=== PATIENT | female | born 2000 | race Caucasian/White ===

== ENCOUNTER 2022-06-06 22:48 | Emergency (ER) | payer SELFPAY ==
[~2022-06-06] VITALS: Ht 157.5 cm; Wt 68.2 kg
[2022-06-06 22:53] VITALS: BP 114/61; TEMP 97.9
[2022-06-06 23:30] LABS: COLLECTION METHOD CLEAN CATCH
[2022-06-06 23:38] LABS: MUCOUS Present (NOT PRESENT); URINE APPEARANCE Clear (CLEAR/HAZY); URINE BACTERIA Rare /hpf (NONE SEEN); URINE BLOOD Negative (NEGATIVE); URINE COLOR Yellow (YELLOW); URINE GLUCOSE TRACE (NEGATIVE); URINE KETONE Negative (NEGATIVE); URINE NITRATE Negative (NEGATIVE); URINE PROTEIN(semi-quant) Negative (NEGATIVE); URINE RBC 0-2 /hpf (0-2); URINE UROBILINOGEN 0.2 E.U/dL (0.2-1.0)
[2022-06-06 23:54] VITALS: PULSE 98
== END 2022-06-07 | disposition home or self-care (01) ==
LOC: COL.ER 22:48
PROVIDERS: Nurse Practitioner
DX: O26.892 Other specified pregnancy related conditions, second trimester (principal); R10.30 Lower abdominal pain, unspecified; Z28.310 Unvaccinated for COVID-19; Z3A.17 17 weeks gestation of pregnancy

== ENCOUNTER → 2022-08-15 | Outpatient (CLI) | payer SELFPAY ==
[~2022-08-15] VITALS: Ht 157.5 cm; Wt 66.8 kg
--- NOTE | 2022-08-16 00:30 | NUR ---
PT ARRIVED FROM HOME TO L&D WITH C/O ABD CRAMPING, SPOTTING AND WHITE DISCHARGE THAT STARTED LAST NIGHT AROUND 2300. THIS RN LOOKED AND SAW ONE SMALL SPOT OF PINK AND WHITE DISCHARGE IN PTS UNDERWEAR. A PAD WAS PLACED TO CATCH ANY DISCHARGE OR BLOOD UPON ARRIVAL, PAD IS DRY AT 0111. PT STATES THAT WHEN LAYING DOWN SHE HAS NO ABD PN BUT WALKING AND SITTING WITH A PN OF 10/10. PT STATES THAT TYLENOL HAS NOT HELPED THE DISCOMFORT, ONLY LAYING DOWN. MONITORS PLACED UPON ADMISSION, NO CTX NOTED AND PT STATES THE PAIN WHEN WALKING, STANDING OR SITTING IS CONSTANT. PT APPEARS COMFORTABLE IN BED. MATERNAL MOTHER AT BEDSIDE. WATER AT BEDSIDE AND CALL LIGHT WITHIN REACH.
[2022-08-16 01:00] VITALS: TEMP 98.3
[2022-08-16 02:00] VITALS: BP 121/71; PULSE 89; TEMP 98.3
[2022-08-16 02:23] LABS: COLLECTION METHOD CLEAN CATCH
[2022-08-16 02:26] LABS: BASO % 0.2 % (0.0-2.0); EOS # 0.2 K/mm3 (0.0-0.7); EOS % 1.3 % (0.0-4.0); GRAN # 11.2 K/mm3 (1.4-6.5); GRAN % 77.8 % (42.2-75.2); HEMOGLOBIN 11.9 g/dl (12.5-16.0); LYMPH # 2.3 K/mm3 (1.2-3.4); LYMPH % 16.1 % (20.0-51.0); MEAN CELL VOLUME 85 fl (80.0-100.0); MEAN CORPUSCULAR HEMOGLOBIN 30 pg (27-31); MEAN CORPUSCULAR HGB CONC 36 g/dl (33.0-37.0); MEAN PLATELET VOLUME 12.4 fl (7.4-10.4); MONO # 0.6 K/mm3 (0.1-0.6); MONO % 3.9 % (1.7-9.3); RED BLOOD COUNT 3.91 M/mm3 (4.10-5.30); REDCELL DISTRIBUTION WIDTH-CV 12.8 % (11.5-14.5)
[2022-08-16 02:30] LABS: MUCOUS Present (NOT PRESENT); SQUAMOUS EPITHELIAL 0-2 /hpf (0-10); URINE BACTERIA None Seen /hpf (NONE SEEN); URINE RBC None Seen /hpf (0-2); URINE WBC 0-2 /hpf (0-2)
[2022-08-16 02:34] LABS: PH 6.5 (5.0-8.5); URINE APPEARANCE Clear (CLEAR/HAZY); URINE COLOR Yellow (YELLOW)
[2022-08-16 02:35] LABS: URINE BLOOD Negative (NEGATIVE); URINE GLUCOSE Negative (NEGATIVE); URINE KETONE Negative (NEGATIVE); URINE NITRATE Negative (NEGATIVE); URINE PROTEIN(semi-quant) Negative (NEGATIVE); URINE UROBILINOGEN 0.2 E.U/dL (0.2-1.0)
[2022-08-16 02:40] LABS: HEMATOCRIT 33.4 % (37.0-47.0)
[2022-08-16 02:45] LABS: ALBUMIN 3.4 gm/dL (3.5-5.0); BILIRUBIN,TOTAL 0.2 mg/dL (0.2-1.2); CALCIUM 9.1 mg/dL (8.4-10.2); CREATININE, serum 0.72 mg/dL (0.57-1.11); POTASSIUM 3.7 mmol/L (3.5-4.5); TOTAL PROTEIN 6.7 gm/dL (6.2-8.1)
[2022-08-16 02:49] LABS: PLATELET COUNT 94 K/mm3 (130-400)
[2022-08-16 03:00] VITALS: BP 104/59; PULSE 77
--- NOTE | 2022-08-16 03:00 | NUR ---
PT STATED PN IS A 0/10. PT SITTING UP EATING A SANDWICH AND STATES SHE WOULD LIKE TO GO HOME TO REST AND CALL MD IN THE MORNING FOR SONOGRAM/IMAGING.
== END ==
LOC: LDRO 23:51
PROVIDERS: Student in an Organized Health Care Education/Training Program
DX: O26.852 Spotting complicating pregnancy, second trimester (principal); O26.892 Other specified pregnancy related conditions, second trimester; R25.2 Cramp and spasm; Z3A.26 26 weeks gestation of pregnancy
CPT/HCPCS: J7120

== ENCOUNTER 2022-09-19 22:46 | Outpatient (CLI) | payer SELFPAY ==
[~2022-09-19] VITALS: Ht 157.5 cm; Wt 70.0 kg
[~2022-09-19 22:46] MED LIST: PRENATAL TABLET PO; TYLENOL 500MG500 MG PO
--- NOTE | 2022-09-19 22:50 | NUR ---
G2 at 31 weeks and 1 day arrives to unit ambulatory for repeat betamethasone injection. Pt denies feeling strong, regular contractions. Feels cramping occasionally but states it is nothing like it felt like last night. Reports good movement. Denies loss of fluid or vaginal bleeding. Pt oriented to room, call light within reach, bed in low and lock position. US and toco explained and applied. Vitals obtained. Admission assessment started. No SVE as patient is not complaining of contractions or cramping.
[2022-09-19 23:15] VITALS: BP 118/56; PULSE 78; TEMP 98.7
[2022-09-19] MEDS ORDERED: LR 1,000 ML IV PRN (23:15)
[2022-09-19] MEDS ORDERED: Betamethasone Acetate/Na Phos 6 MG/ML 5 ML MDV IM ONE (23:15)
[2022-09-19 23:30] VITALS: BP 115/56; PULSE 76
--- NOTE | 2022-09-19 23:30 | NUR ---
2316 - Betamethasone injection given in R glute at this time, pt tolerated well. 2325 - Contraction noted on toco at this time, pt unaware. 2330 - Category 1 FHR tracing obtained, monitors off. 2335 - Discharge instructions and return precautions reviewed with patient, verbalized understanding. Pt seen ambulating off unit with family member.
[2022-11-07] MEDS ORDERED: PREDNISONE20 MG PO (00:34)
[2022-11-18] MEDS ORDERED: IBU800 M1 PO (09:15)
[2022-11-18] MEDS ORDERED: FERROUSAL325 MG PO (09:15)
[2022-11-18] MEDS ORDERED: ROXICODONE 55 MG/TAB PO (09:16)
== END 2022-09-19 23:35 | disposition home or self-care (01) ==
LOC: LDRO 22:46 → LDR 23:08 → LDRO 23:35
DX: Z34.93 Encounter for supervision of normal pregnancy, unspecified, third trimester (principal); Z3A.31 31 weeks gestation of pregnancy
CPT/HCPCS: OP; J0702

== ENCOUNTER 2022-09-20 11:19 | Outpatient (CLI) | payer SELFPAY ==
[~2022-09-20] VITALS: Ht 157.5 cm; Wt 70.0 kg
--- NOTE | 2022-09-20 11:25 | NUR ---
Pt arrived on unit via wheelchair and with concerns for contractions every 15 minutes. Pt denies any leaking of fluid, vaginal bleeding or decreased movement. EFM and toco monitors started. Vital signs WNL. Plan of care for labor assessment received.
[2022-09-20 12:30] VITALS: BP 115/59; PULSE 79; TEMP 98.2
[2022-09-20] MEDS ORDERED: LR 1,000 ML IV ONE (12:30)
[2022-09-20] MEDS ORDERED: LR 1,000 ML IV PRN (12:30)
--- NOTE | 2022-09-20 14:00 | NUR ---
Discharge instructions and labor precautions reviewed with pt. Pt verbalized an understanding.
[2022-11-07] MEDS ORDERED: PREDNISONE20 MG PO (00:34)
[2022-11-18] MEDS ORDERED: IBU800 M1 PO (09:15)
[2022-11-18] MEDS ORDERED: FERROUSAL325 MG PO (09:15)
[2022-11-18] MEDS ORDERED: ROXICODONE 55 MG/TAB PO (09:16)
== END 2022-09-20 14:15 | disposition home or self-care (01) ==
LOC: LDRO 11:19
DX: O47.03 False labor before 37 completed weeks of gestation, third trimester (principal); Z3A.31 31 weeks gestation of pregnancy
CPT/HCPCS: J7120